=== PATIENT | male | born 1980 | race African-American/Black ===

== ENCOUNTER 2021-10-27 21:09 | Emergency (ER) | payer OTHER ==
[~2021-10-27] VITALS: Ht 175.3 cm; Wt 64.0 kg
[2021-10-27 21:57] VITALS: BP 136/76
[2021-10-27 22:25] LABS: BASOPHILS % 0.6 % (0.0-2.0); EOSINOPHILS % 2.5 % (0.0-5.0); HEMATOCRIT. 42.2 % (42.0-52.0); HEMOGLOBIN. 14.5 g/dL (14.0-18.0); LYMPHOCYTES % 43.4 % (20.0-50.0); MEAN PLATELET VOLUME 8.1 fl (7.4-10.4); MONOCYTES % 10.9 % (2.0-8.0); NEUTROPHILS % 42.6 % (40.0-76.0); PLATELET 247 x1000/uL (130-400); RED BLOOD CELL COUNT 4.54 mill/uL (4.7-6.1); RED CELL DISTRIBUTION WIDTH 14.7 % (11.6-14.6)
[2021-10-27 22:27] LABS: CHLORIDE 109 mEq/L (98-107)
[2021-10-27 22:30] LABS: ETHANOL BLOOD < 10 mg/dL
[2021-10-28 01:08] LABS: *AMPHETAMINES SCREEN URINE PRESUMTIVE POSITIVE (NEGATIVE); *BARBITURATES SCREEN URINE NEGATIVE (NEGATIVE); *BENZODIAZEPINES SCREEN URINE NEGATIVE (NEGATIVE); *COCAINE SCREEN URINE NEGATIVE (NEGATIVE)
[2021-10-28 01:09] LABS: CANNABINOID URINE SCREEN PRESUMTIVE POSITIVE (NEGATIVE); METHADONE URINE SCREEN NEGATIVE (NEGATIVE); OPIATES URINE SCREEN PRESUMTIVE POSITIVE (NEGATIVE); PHENCYCLIDINE URINE SCREEN NEGATIVE (NEGATIVE)
[2021-10-28] MEDS ORDERED: CEFTRIAXONE SODIUM 500 MG/VIAL IM ONE (04:15)
[2021-10-28] MEDS ORDERED: AZITHROMYCIN 500 MG TABLET PO ONE (04:15)
== END 2021-10-28 05:02 | disposition home or self-care (01) ==
LOC: ER 21:09
DX: R07.89 Other chest pain (principal); F19.10 Other psychoactive substance abuse, uncomplicated; R94.31 Abnormal electrocardiogram [ECG] [EKG]; F17.290 Nicotine dependence, other tobacco product, uncomplicated; F14.10 Cocaine abuse, uncomplicated; F12.10 Cannabis abuse, uncomplicated
CPT/HCPCS: 36415; 71045; 80053; 80305; 80320; 83880; 84484; 85025; 93005; 96372; 99285; J0696; G0480